=== PATIENT | male | born 1965 | race Asian ===

== ENCOUNTER → 2016-11-26 | Day surgery (SDC) | payer OTHER ==
[~2016-11-26] VITALS: Ht 175.3 cm; Wt 99.8 kg
[~2016-11-26] MED LIST: 0.9% Sodium Chloride 1,000 ML IV SCH; ALBU8.5H2 INHALATION; ALFU10TA PO; ATRV10T PO; AZU500 PO; CELE100C PO; CETI10CA PO; CLOB15CR3 TOP; ESOM40CA41 PO; FLUT12AE8 IH; FLUT16SP NS; GABA-500 PO; LISI1TAB11 PO; OLP.1OP5 OCULAR; OXYC1TAB24 PO; Sodium Chloride LOK Flush 10 mL Syringe IV PRN; WOOL454C TP; fentaNYL-PF 50 mCg/mL 2 mL Inj IVPUSH PRN
[2016-11-26 10:24] VITALS: BP 131/83; PULSE 81; RESP 14; O2SAT 98
[2016-11-26 11:41] VITALS: BP 108/60; PULSE 82; RESP 11; O2SAT 96
[2016-11-26 11:51] VITALS: BP 114/60; PULSE 77; RESP 12; O2SAT 96
[2016-11-26 11:55] VITALS: BP 108/79; PULSE 86; RESP 12; O2SAT 99
--- NOTE | 2016-11-26 13:42 | ENDO ---
[address] [address] ENDOSCOPY PROCEDURE PATIENT: MARGI JERNIGAN : 1965 MR#: [id number] ADMIT: 11/26/2016 JOB ID: [id number] DATE: 11/26/2016 PRIMARY PROVIDER: Freddy Wong PROCEDURE: Esophagogastroduodenoscopy with biopsies and a colonoscopy with cold forceps polypectomy, biopsies and cold snare polypectomy. INDICATIONS: A 51-year-old male who reports temporary symptoms of dark stool of uncertain etiology. He additionally had some red blood per rectum. Historically there has been a question as to whether he has inflammatory bowel disease. He is not experiencing any symptoms of diarrhea at present. He remains on Celebrex. EQUIPMENT: GIF H 180 J and a PCF H 180 AL. SEDATION: 1. 4 mg Versed. 2. 100 mcg fentanyl. COMPLICATIONS: None identified. BOWEL PREPARATION: Fair, adequate examination. PROCEDURAL INFORMATION: After the risks and benefits were explained, written and verbal informed consent was obtained. The patient was brought into the endoscopy suite and placed into the left lateral decubitus position. Sedation was achieved as above. The scope was introduced into the mouth through the bite block, and advanced to the second portion of the duodenum. The scope was slowly withdrawn to carefully examine the mucosa for any defects or lesions. Retroflexed views were accomplished in the stomach. The stomach was decompressed. The scope removed from the patient who tolerated the procedure well. The patient was then turned around. A digital rectal examination accomplished. No significant pathology appreciated. The scope was introduced into the rectum and advanced under direct visualization to the cecum as identified by the appendiceal orifice and ileocecal valve. The terminal ileum was briefly accessed. The scope then slowly withdrawn to carefully examine the mucosa for any defects or lesions. Multiple direct views were made through the dentate line for exclusion of pathology. The colon was decompressed. The scope removed from the patient who tolerated the procedure well. FINDINGS: 1. Duodenum: This appeared visually unremarkable from the bulb through to the second portion. 2. Stomach: The patient had a diffuse mild gastropathy. No ulcers. No mass lesions. No outlet obstruction. Random biopsy was acquired for exclusion of Helicobacter or other pathology. Retroflexed views of the LES were unremarkable. 3. Esophagus: The patient had a subtle sliding hiatal hernia. Slight irregularity at the GE junction probably related to some reflux but this area was targeted for biopsy for histopathologic analysis. The remainder of the esophagus appeared unremarkable. 4. Terminal ileum: This appeared visually normal. 5. Colon: There was some mild diffuse erythema throughout the left colon. No overt colitis. Random biopsies were taken from the left colon. For histopathologic analysis. There were two polyps seen and removed today from the transverse and left colon. The larger of the two was perhaps 5 mm; cold snare was utilized. A smaller polyp was removed a little more distally with the cold forceps. No other significant pathology was appreciated throughout. Mild internal hemorrhoid cushions noted on direct views. ENDOSCOPIC DIAGNOSES: 1. Irregular Z-line. 2. Subtle sliding hiatal hernia. 3. Gastropathy. 4. Colon polyps. 5. Mild internal hemorrhoids. 6. Subtle left-sided colopathy-? Prep artifact. RECOMMENDATIONS: 1. Await histopathology. 2. Continue current medical regimen. 3. If adenomatous features are confirmed, repeat colonoscopy five years.
--- NOTE | 2016-11-27 11:39 | PATH ---
SURGICAL PATHOLOGY Attending Physician:León Pryor CASE STATUS: Signed Out PATIENT NAME: MARGI JERNIGAN PID: [id number] : 1965 DATE COLLECTED:11/26/2016 20:34 SPECIMEN: 1: Gastric, Biopsy 2: Esophagus, Biopsy 3: Colon, Polyp 4: Colon, Biopsy CLINICAL HISTORY: BLOOD IN STOOL 1). GASTRIC BIOPSY, RULE OUT H.PYLORI 2). GE JUNCTION BIOPSY 3). COLON POLYPS X2 4). LEFT COLON BIOPSY FINAL DIAGNOSIS: 1. Stomach, Biopsy: Antral mucosa with mild chronic gastritis and intestinal metaplasia. Negative for active inflammation and Helicobacter organisms. Negative for dysplasia and malignancy. 2. GE Junction, Biopsy: Squamocolumnar junctional mucosa with chronic active esophagitis. Negative for Granger's esophagus, dysplasia and malignancy. 3. Colon Polyps x2, Biopsy: Two tubular adenomas. 4. Left Colon, Biopsy: Colonic mucosa with no diagnostic abnormality. Negative for active inflammation, microscopic colitis, dysplasia and malignancy. ICD10: K29.7 K20.9 GROSS DESCRIPTION: The specimen is received in four formalin filled containers labeled with the patient's name. 1). The specimen is labeled "gastric" and consists of a 0.2 x 0.2 x 0.2 CM portion of tissue which is entirely submitted in cassette 1A. 2). The specimen is labeled " GEJ " and consists of 2 portions of tissue which aggregate to 0.1 x 0.1 x 0.1 CM. The specimen is entirely submitted in cassette 2A. 3). The specimen is labeled "colon polyps" and consists of 2 portions of tissue which aggregate to 0.3 x 0.3 x 0.2 CM. The specimen is entirely submitted in cassette 3A. 4). The specimen is labeled "left colon" and consists of 2 tiny portions of tissue which aggregate to 0.1 x 0.1 x 0.1 CM. The specimen is entirely submitted in cassette 4A. 11/26/2016DC ICD-9 CODES: CPT CODES: 1: 27967 2: 38371 3: 72496 4: 73412 Electronically Signed Out Dino Carlson MD, PhD [facility] Pathology [facility] [address] [place] [id number] Technical component performed at [facility], [address], [place], [address]
== END | disposition home or self-care (01) ==
LOC: END 02:25
PROVIDERS: ATTEND Internal Medicine Gastroenterology
DX: D12.3 Benign neoplasm of transverse colon (principal); K64.8 Other hemorrhoids; K58.9 Irritable bowel syndrome, unspecified; K29.50 Unspecified chronic gastritis without bleeding; K21.0 Gastro-esophageal reflux disease with esophagitis; K44.9 Diaphragmatic hernia without obstruction or gangrene; D64.9 Anemia, unspecified; M54.2 Cervicalgia; M19.90 Unspecified osteoarthritis, unspecified site; I10 Essential (primary) hypertension; G47.33 Obstructive sleep apnea (adult) (pediatric); M54.30 Sciatica, unspecified side; J45.909 Unspecified asthma, uncomplicated; E78.1 Pure hyperglyceridemia; N40.0 Benign prostatic hyperplasia without lower urinary tract symptoms; Z86.010 Personal history of colon polyps; Z79.51 Long term (current) use of inhaled steroids; Z79.899 Other long term (current) drug therapy